=== PATIENT | female | born 1950 | race Caucasian/White ===

== ENCOUNTER 2017-08-21 14:20 | Inpatient (IN) | payer MEDICARE, OTHER ==
[~2017-08-21] VITALS: Ht 162.6 cm; Wt 59.3 kg
[~2017-08-21 14:20] MED LIST: AMITRIPTYLINE H50 M1 PO; BENEFIBER; CELEXA40 MG PO; DILAUDID 4MG TAB4 MG PO; DULCOLAX S10 MG/SUPP RC; EXCEDRIN1 TAB PO; FLEET ENEM1 BOT/133 RC; FLEXERIL 1010 MG/TAB PO; MILK OF MA400 MG/52 PO; MIRALAX PA17 GM/Dose PO; SENNA8.6 MG PO; XANAX 0.5MG0.5 MG PO
[2017-08-21 15:55] LABS: COLLECTION METHOD CATHETER
[2017-08-21 16:00] LABS: PH 6 (5-8); SQUAMOUS EPITHELIAL None Seen /hpf; URINE APPEARANCE Clear; URINE BACTERIA None Seen /hpf; URINE BILIRUBIN Negative (NEGATIVE); URINE BLOOD Negative (NEGATIVE); URINE COLOR Straw; URINE GLUCOSE Negative (NEGATIVE); URINE KETONE Negative (NEGATIVE); URINE LEUKOCYTE ESTERASE Negative (NEGATIVE); URINE NITRATE Negative (NEGATIVE); URINE PROTEIN(semi-quant) Negative (NEGATIVE); URINE RBC 0-2 /hpf; URINE UROBILINOGEN Negative (NEGATIVE)
[2017-08-21 16:03] LABS: BASO % 0.1 % (0.0-2.0); GRAN % 97.2 % (42.2-75.2); HEMOGLOBIN 10.1 g/dl (12.5-16.0); LYMPH # 0.3 (1.2-3.4); LYMPH % 1.6 % (20.0-51.0); MEAN CELL VOLUME 88 fl (80.0-100.0); MEAN CORPUSCULAR HEMOGLOBIN 28 pg (27.0-31.0); MEAN CORPUSCULAR HGB CONC 32 g/dl (33.0-37.0); MEAN PLATELET VOLUME 9.1 fl (7.4-10.4); MONO % 0.2 % (1.7-9.3); PLATELET COUNT 444 K/mm3 (130-400); RED BLOOD COUNT 3.58 M/mm3 (4.10-5.30); REDCELL DISTRIBUTION WIDTH-CV 14.5 % (11.5-14.5)
[2017-08-21 16:05] LABS: HEMATOCRIT 31.5 % (37.0-47.0)
[2017-08-21 16:07] LABS: PROTHROMBIN TIME 11.7 SECONDS (9.7-12.8)
[2017-08-21 16:09] LABS: PARTIAL THROMBOPLASTIN TIME 27.4 SECONDS (26.0-37.0)
[2017-08-21 16:15] LABS: ALBUMIN 2.7 gm/dL (3.5-5.0); BILIRUBIN,TOTAL 0.2 mg/dL (0.0-1.0); CALCIUM 8.8 mg/dL (8.4-10.2); CREATININE, serum 0.92 mg/dL (0.52-1.25); POTASSIUM 4.3 mmol/L (3.4-5.0)
[2017-08-21 18:18] VITALS: BP 136/78; PULSE 88; TEMP 97.8
[2017-08-21 20:04] VITALS: BP 112/65; PULSE 90; TEMP 97.6
[2017-08-22] VITALS (29 sets, daily range): BP systolic 117–142; BP diastolic 63–86; PULSE 90–105; TEMP 98–98.4; O2SAT 99–100
[2017-08-22 07:26] LABS: MEAN CELL VOLUME 88 fl (80.0-100.0); MEAN CORPUSCULAR HGB CONC 32 g/dl (33.0-37.0); MEAN PLATELET VOLUME 9.4 fl (7.4-10.4); PLATELET COUNT 457 K/mm3 (130-400); RED BLOOD COUNT 3.53 M/mm3 (4.10-5.30); REDCELL DISTRIBUTION WIDTH-CV 14.5 % (11.5-14.5)
[2017-08-22 07:30] LABS: HEMATOCRIT 30.9 % (37.0-47.0); HEMOGLOBIN 9.8 g/dl (12.5-16.0); MEAN CORPUSCULAR HEMOGLOBIN 28 pg (27.0-31.0)
[2017-08-22 07:45] LABS: CALCIUM 8.8 mg/dL (8.4-10.2); CREATININE, serum 0.71 mg/dL (0.52-1.25); POTASSIUM 4.2 mmol/L (3.4-5.0)
[2017-08-22 07:58] LABS: BAND 14 % (0-10); HYPOCHROMIA 2+; LYMPHOCYTE 2 % (20.0-51.0); NEUTROPHILS 84 % (42.0-75.2); PLATELET ESTIMATE INCREASED (NORMAL)
[2017-08-22 22:09] LABS: ARTERIAL BLD GAS O2 SATURATION 91.1 % (92-100); ARTERIAL BLD GAS TCO2 CT 27.5; ARTERIAL BLOOD GAS BASE EXCESS 1.7 (-2-2); ARTERIAL BLOOD GAS HCO3 26.2 meq/L (22-26); ARTERIAL BLOOD GAS PCO2 40.9 mmHg (35-45); ARTERIAL BLOOD GAS PO2 64.8 mmHg (80-100); ARTERIAL BLOOD GAS pH 7.43 (7.35-7.45)
[2017-08-23] VITALS (564 sets, daily range): BP systolic 114–124; BP diastolic 60–76; PULSE 91–106; TEMP 98.4–100; O2SAT 61–100
[2017-08-23 05:39] LABS: INR 1.1 (0.8-3.0); PROTHROMBIN TIME 12.7 SECONDS (9.7-12.8)
[2017-08-23 05:40] LABS: HEMATOCRIT 28.8 % (37.0-47.0); HEMOGLOBIN 9.1 g/dl (12.5-16.0)
[2017-08-23 05:47] LABS: CALCIUM 8.6 mg/dL (8.4-10.2); CREATININE, serum 0.68 mg/dL (0.52-1.25); POTASSIUM 4.1 mmol/L (3.4-5.0)
[2017-08-23 05:57] LABS: ARTERIAL BLD GAS O2 SATURATION 96.7 % (92-100); ARTERIAL BLD GAS TCO2 CT 28.9; ARTERIAL BLOOD GAS HCO3 27.6 meq/L (22-26); ARTERIAL BLOOD GAS PCO2 42.6 mmHg (35-45); ARTERIAL BLOOD GAS PO2 95.7 mmHg (80-100); ARTERIAL BLOOD GAS pH 7.43 (7.35-7.45)
[2017-08-23 09:42] LABS: MEAN CELL VOLUME 90 fl (80.0-100.0); MEAN CORPUSCULAR HGB CONC 31 g/dl (33.0-37.0); MEAN PLATELET VOLUME 9.3 fl (7.4-10.4); PLATELET COUNT 380 K/mm3 (130-400); RED BLOOD COUNT 3.29 M/mm3 (4.10-5.30); REDCELL DISTRIBUTION WIDTH-CV 14.6 % (11.5-14.5)
[2017-08-23 09:46] LABS: HEMATOCRIT 29.6 % (37.0-47.0); HEMOGLOBIN 9.3 g/dl (12.5-16.0); MEAN CORPUSCULAR HEMOGLOBIN 28 pg (27.0-31.0)
[2017-08-23 10:12] LABS: BAND 16 % (0-10); HYPOCHROMIA 2+; LYMPHOCYTE 2 % (20.0-51.0); NEUTROPHILS 81 % (42.0-75.2); PLATELET ESTIMATE NORMAL (NORMAL)
[2017-08-24] VITALS (287 sets, daily range): BP systolic 104–143; BP diastolic 62–86; PULSE 99–109; TEMP 97.6–99.7; O2SAT 66–100
[2017-08-24 06:08] LABS: MEAN CELL VOLUME 91 fl (80.0-100.0); MEAN CORPUSCULAR HGB CONC 31 g/dl (33.0-37.0); MEAN PLATELET VOLUME 9.1 fl (7.4-10.4); RED BLOOD COUNT 2.98 M/mm3 (4.10-5.30); REDCELL DISTRIBUTION WIDTH-CV 14.6 % (11.5-14.5)
[2017-08-24 06:09] LABS: HEMOGLOBIN 8.4 g/dl (12.5-16.0); MEAN CORPUSCULAR HEMOGLOBIN 28 pg (27.0-31.0); PLATELET COUNT 267 K/mm3 (130-400)
[2017-08-24 06:18] LABS: INR 1.3 (0.8-3.0); PROTHROMBIN TIME 14.4 SECONDS (9.7-12.8)
[2017-08-24 06:22] LABS: CALCIUM 8.5 mg/dL (8.4-10.2); CREATININE, serum 0.7 mg/dL (0.52-1.25); POTASSIUM 3.8 mmol/L (3.4-5.0)
[2017-08-24 06:59] LABS: BAND 9 % (0-10); LYMPHOCYTE 3 % (20.0-51.0); NEUTROPHILS 88 % (42.0-75.2); PLATELET ESTIMATE NORMAL (NORMAL)
[2017-08-24 07:00] LABS: HYPOCHROMIA 1+
[2017-08-25 04:04] VITALS: BP 108/65; PULSE 100; TEMP 99
[2017-08-25 07:33] LABS: MEAN CELL VOLUME 89 fl (80.0-100.0); MEAN CORPUSCULAR HGB CONC 31 g/dl (33.0-37.0); MEAN PLATELET VOLUME 9.6 fl (7.4-10.4); PLATELET COUNT 218 K/mm3 (130-400); RED BLOOD COUNT 2.67 M/mm3 (4.10-5.30); REDCELL DISTRIBUTION WIDTH-CV 14.5 % (11.5-14.5)
[2017-08-25 07:34] VITALS: BP 107/70; PULSE 107; TEMP 98.8
[2017-08-25 07:34] LABS: HEMATOCRIT 23.7 % (37.0-47.0); HEMOGLOBIN 7.4 g/dl (12.5-16.0); MEAN CORPUSCULAR HEMOGLOBIN 28 pg (27.0-31.0)
[2017-08-25 07:44] LABS: CALCIUM 8.2 mg/dL (8.4-10.2); CREATININE, serum 0.62 mg/dL (0.52-1.25); POTASSIUM 3.5 mmol/L (3.4-5.0)
[2017-08-25 07:52] LABS: INR 1.3 (0.8-3.0); PROTHROMBIN TIME 14.6 SECONDS (9.7-12.8)
[2017-08-25 08:33] LABS: BAND 19 % (0-10); BASOPHIL 1 % (0-2); EOSINOPHIL 1 % (0-4); LYMPHOCYTE 7 % (20.0-51.0); NEUTROPHILS 72 % (42.0-75.2); PLATELET ESTIMATE NORMAL (NORMAL)
[2017-08-25 11:42] VITALS: BP 98/62; PULSE 102; TEMP 98.3
[2017-08-25 14:42] LABS: HEMATOCRIT 25.3 % (37.0-47.0); HEMOGLOBIN 7.9 g/dl (12.5-16.0)
[2017-08-25 15:19] VITALS: BP 99/48; PULSE 95; TEMP 98.4
[2017-08-25 20:06] VITALS: BP 110/58; PULSE 99; TEMP 98.9
[2017-08-26] VITALS: BP 129/56; PULSE 99; TEMP 98.5
[2017-08-26 04:00] VITALS: BP 131/59; PULSE 105; TEMP 98.6
[2017-08-26 07:29] VITALS: BP 104/59; PULSE 103; TEMP 98.8
[2017-08-26 07:39] LABS: MEAN CELL VOLUME 89 fl (80.0-100.0); MEAN CORPUSCULAR HGB CONC 32 g/dl (33.0-37.0); MEAN PLATELET VOLUME 9.7 fl (7.4-10.4); PLATELET COUNT 180 K/mm3 (130-400); RED BLOOD COUNT 2.77 M/mm3 (4.10-5.30); REDCELL DISTRIBUTION WIDTH-CV 14.5 % (11.5-14.5)
[2017-08-26 07:43] LABS: CALCIUM 8.4 mg/dL (8.4-10.2); CREATININE, serum 0.64 mg/dL (0.52-1.25); POTASSIUM 3.7 mmol/L (3.4-5.0)
[2017-08-26 07:45] LABS: INR 1.2 (0.8-3.0); PROTHROMBIN TIME 13.9 SECONDS (9.7-12.8)
[2017-08-26 07:46] LABS: HEMATOCRIT 24.7 % (37.0-47.0); HEMOGLOBIN 7.8 g/dl (12.5-16.0); MEAN CORPUSCULAR HEMOGLOBIN 28 pg (27.0-31.0)
[2017-08-26 09:09] LABS: BAND 10 % (0-10); BASOPHIL 2 % (0-2); EOSINOPHIL 2 % (0-4); LYMPHOCYTE 31 % (20.0-51.0); NEUTROPHILS 55 % (42.0-75.2); PLATELET ESTIMATE NORMAL (NORMAL)
[2017-08-26 09:10] LABS: HYPOCHROMIA 2+
[2017-08-26 12:38] VITALS: BP 100/59; PULSE 92; TEMP 98.8
[2017-08-26 15:54] VITALS: BP 132/67; PULSE 95; TEMP 98.1
[2017-08-26 19:43] VITALS: BP 116/64; PULSE 97; TEMP 99.8
[2017-08-27] VITALS (12 sets, daily range): BP systolic 82–110; BP diastolic 47–64; PULSE 88–105; TEMP 97.3–100.9
[2017-08-27 06:49] LABS: MEAN CELL VOLUME 91 fl (80.0-100.0); MEAN CORPUSCULAR HGB CONC 31 g/dl (33.0-37.0); PLATELET COUNT 133 K/mm3 (130-400); RED BLOOD COUNT 2.38 M/mm3 (4.10-5.30); REDCELL DISTRIBUTION WIDTH-CV 14.4 % (11.5-14.5)
[2017-08-27 06:53] LABS: INR 1.2 (0.8-3.0); PROTHROMBIN TIME 13.8 SECONDS (9.7-12.8)
[2017-08-27 06:56] LABS: HEMATOCRIT 21.7 % (37.0-47.0); HEMOGLOBIN 6.7 g/dl (12.5-16.0); MEAN CORPUSCULAR HEMOGLOBIN 28 pg (27.0-31.0)
[2017-08-27 07:02] LABS: CALCIUM 8.2 mg/dL (8.4-10.2); CREATININE, serum 0.59 mg/dL (0.52-1.25); POTASSIUM 3.6 mmol/L (3.4-5.0)
[2017-08-27 08:41] LABS: EOSINOPHIL 2 % (0-4); HYPOCHROMIA 1+; LYMPHOCYTE 66 % (20.0-51.0); NEUTROPHILS 28 % (42.0-75.2); PLATELET ESTIMATE NORMAL (NORMAL)
[2017-08-27 11:29] LABS: PH 6 (5-8); SQUAMOUS EPITHELIAL 0-2 /hpf; URINE APPEARANCE Clear; URINE BACTERIA None Seen /hpf; URINE BILIRUBIN Negative (NEGATIVE); URINE BLOOD Negative (NEGATIVE); URINE COLOR Straw; URINE GLUCOSE Negative (NEGATIVE); URINE KETONE Negative (NEGATIVE); URINE LEUKOCYTE ESTERASE Negative (NEGATIVE); URINE NITRATE Negative (NEGATIVE); URINE PROTEIN(semi-quant) Negative (NEGATIVE); URINE RBC 0-2 /hpf; URINE UROBILINOGEN Negative (NEGATIVE)
[2017-08-27 12:00] LABS: COLLECTION METHOD CLEAN CATCH
[2017-08-27 14:32] LABS: HEMATOCRIT 25.1 % (37.0-47.0); HEMOGLOBIN 7.9 g/dl (12.5-16.0)
[2017-08-28 04:44] VITALS: BP 106/56; PULSE 82; TEMP 98.7
[2017-08-28 06:56] LABS: MEAN CELL VOLUME 90 fl (80.0-100.0); MEAN CORPUSCULAR HGB CONC 31 g/dl (33.0-37.0); MEAN PLATELET VOLUME 10.7 fl (7.4-10.4); PLATELET COUNT 120 K/mm3 (130-400); RED BLOOD COUNT 2.86 M/mm3 (4.10-5.30); REDCELL DISTRIBUTION WIDTH-CV 14.2 % (11.5-14.5)
[2017-08-28 06:58] LABS: INR 1.1 (0.8-3.0); PROTHROMBIN TIME 12.8 SECONDS (9.7-12.8)
[2017-08-28 07:00] LABS: HEMATOCRIT 25.6 % (37.0-47.0); MEAN CORPUSCULAR HEMOGLOBIN 28 pg (27.0-31.0)
[2017-08-28 07:05] LABS: CALCIUM 8.4 mg/dL (8.4-10.2); CREATININE, serum 0.58 mg/dL (0.52-1.25); POTASSIUM 3.4 mmol/L (3.4-5.0)
[2017-08-28 07:36] VITALS: BP 95/57; PULSE 99; TEMP 98.5
[2017-08-28 08:37] LABS: BAND 6 % (0-10); EOSINOPHIL 2 % (0-4); HYPOCHROMIA 2+; LYMPHOCYTE 50 % (20.0-51.0); NEUTROPHILS 36 % (42.0-75.2); OVALOCYTES 1+; PLATELET ESTIMATE NORMAL (NORMAL)
[2017-08-28 12:07] VITALS: BP 87/57; PULSE 70; TEMP 98.5
[2017-08-28 15:52] VITALS: BP 99/60; PULSE 102; TEMP 98.5
[2017-08-28 19:45] VITALS: BP 111/67; PULSE 99; TEMP 99.5
[2017-08-28 23:47] VITALS: BP 119/67; PULSE 98; TEMP 99.6
[2017-08-29 03:55] VITALS: BP 115/64; PULSE 99; TEMP 99.2
[2017-08-29 06:50] LABS: MEAN CELL VOLUME 90 fl (80.0-100.0); MEAN CORPUSCULAR HGB CONC 31 g/dl (33.0-37.0); MEAN PLATELET VOLUME 10.6 fl (7.4-10.4); PLATELET COUNT 135 K/mm3 (130-400); RED BLOOD COUNT 2.95 M/mm3 (4.10-5.30); REDCELL DISTRIBUTION WIDTH-CV 14.6 % (11.5-14.5)
[2017-08-29 06:57] LABS: HEMATOCRIT 26.6 % (37.0-47.0); HEMOGLOBIN 8.3 g/dl (12.5-16.0); MEAN CORPUSCULAR HEMOGLOBIN 28 pg (27.0-31.0)
[2017-08-29 06:59] LABS: CALCIUM 8.6 mg/dL (8.4-10.2); CREATININE, serum 0.56 mg/dL (0.52-1.25); POTASSIUM 3.5 mmol/L (3.4-5.0)
[2017-08-29 07:02] LABS: INR 1.3 (0.8-3.0); PROTHROMBIN TIME 14.3 SECONDS (9.7-12.8)
[2017-08-29 08:11] VITALS: BP 101/58; PULSE 103; TEMP 99.8
[2017-08-29 08:53] LABS: BAND 11 % (0-10); HYPOCHROMIA 1+; LYMPHOCYTE 29 % (20.0-51.0); NEUTROPHILS 51 % (42.0-75.2); NUCLEATED RED BLOOD CELL 8 (0-6); OVALOCYTES 1+; PLATELET ESTIMATE NORMAL (NORMAL)
[2017-08-29] MEDS ORDERED: ASPI325T6 PO (10:26)
[2017-08-29] MEDS ORDERED: AMOXICILLIN 8751 TAB PO (10:26)
[2017-08-29] MEDS ORDERED: DILAUDID 2MG TAB2 MG PO (10:27)
[2017-08-29] MEDS ORDERED: FENTANYL 25 MCG TD (10:27)
[2017-08-29] MEDS ORDERED: KLONOPIN 1MG1 MG PO (10:29)
== END 2017-08-29 11:40 | disposition home health service (06) | DRG 469 ==
LOC: COL.ER 14:20 → ICU 16:00 → SURG 16:00 → ICU 08-22 22:52 → SURG 08-24 11:33
PROVIDERS: Emergency Medicine; Family Medicine; Nurse Practitioner; Nurse Practitioner Family; Orthopaedic Surgery Sports Medicine; Physician Assistant
PROC: 0SRR0J9 Replacement of Right Hip Joint, Femoral Surface with Synthetic Substitute, Cemented, Open Approach (ICD-10-PCS; principal; 2017-08-22 14:00)
DX: M84.551A Pathological fracture in neoplastic disease, right femur, initial encounter for fracture (principal); J96.01 Acute respiratory failure with hypoxia; J18.9 Pneumonia, unspecified organism; C34.01 Malignant neoplasm of right main bronchus; C79.51 Secondary malignant neoplasm of bone; C78.7 Secondary malignant neoplasm of liver and intrahepatic bile duct; C78.89 Secondary malignant neoplasm of other digestive organs; D61.818 Other pancytopenia; F17.210 Nicotine dependence, cigarettes, uncomplicated; R73.03 Prediabetes; F41.9 Anxiety disorder, unspecified
CPT/HCPCS: 99222-AI; 99231-AI; 99232-AI; 99233-AI; 99239; A9284; C1751; C1776; J0690; J1170; J1885; J1956; J2250; J2270; J2405; J2543; J2704; J2795; J3010; J3370; J7050; J7120; J7121; P9040; Q9967

== ENCOUNTER → 2017-09-11 | Outpatient (CLI) | payer MEDICARE, OTHER ==
[~2017-09-11] MED LIST changes: +AMOXICILLIN 8751 TAB PO; +ASPI325T6 PO; +DILAUDID 2MG TAB2 MG PO; +FENTANYL 25 MCG TD; +KLONOPIN 1MG1 MG PO
== END ==
LOC: COL.RAD 07:30
DX: R47.81 Slurred speech (principal); C34.11 Malignant neoplasm of upper lobe, right bronchus or lung; R51 Headache
CPT/HCPCS: A9585